=== PATIENT | female | born 1990 | race African-American/Black ===

== ENCOUNTER 2018-07-23 07:59 | Day surgery (SDC) | payer BC, OTHER ==
[2018-07-23] MEDS ORDERED: CEFAZOLIN 1 GM/D5W RTU 1 GM/50 ML RTUPB IV PRN (08:02)
[2018-07-23] MEDS ORDERED: FENTANYL CITRATE INJ/PF 100 MCG/2 ML AMPUL ONE (08:31)
[2018-07-23] MEDS ORDERED: LIDOCAINE 2% INJ-PF (20 MG/ML) 10 ML AMPUL ONE (08:31)
[2018-07-23] MEDS ORDERED: MIDAZOLAM 2 MG/2 ML INJ ONE (08:31)
[2018-07-23] MEDS ORDERED: PROPOFOL INJ 200 MG/20 ML VIAL IV ONE (08:32)
[2018-07-23] MEDS ORDERED: KETOROLAC TROMETHAMINE 60 MG/2 ML SDV ONE (08:32)
[2018-07-23] MEDS: BUPIVACAINE HCL 0.5 % INJ/PF 30 ML SDV ONE ×2 (09:20)
[2018-07-23] MEDS: LIDOCAINE 2% INJ (20 MG/ML) 20 ML MDV ONE ×2 (09:20)
[2018-07-23] MEDS: NORMAL SALINE INJ/PF 0.9% 10 ML SDV ONE ×2 (09:48)
[2018-07-23] MEDS: BACITRACIN INJ 50,000 UNIT VIAL ONE ×2 (09:48)
[2018-07-23] MEDS: POLYMYXIN B SULFATE INJ 500000 UNIT VIAL ONE ×2 (09:48)
--- NOTE | 2018-07-23 10:39 | [facility]ICARE OPERATIVE REPORT E ---
[facility] Operative Report NAME: JHOAN DUARTE AGE: 28Y DATE OF SURGERY: 07/23/2018 ROOM: PREOPERATIVE DIAGNOSIS: OSTEOPHYTE ON THE DISTAL PHALANX OF THE SECOND TOE OF THE RIGHT FOOT. POSTOPERATIVE DIAGNOSIS: OSTEOPHYTE ON THE DISTAL PHALANX OF THE SECOND TOE OF THE RIGHT FOOT. OPERATION: Excision of osteophyte on the distal aspect of the patient's second distal phalanx. SURGEON: HUSSEIN PETER DPM PROCEDURE: On 07/23/2018, the patient was admitted to [facility] with complaint of painful right foot. Patient was taken to the operating room where following induction of intravenous sedation and regional local anesthesia, the patient's right foot and leg were prepped in usual sterile manner. A digital tourniquet was applied. Prior to that, surgical timeout was performed. Digital tourniquet was applied. Attention was directed to the distal aspect of the patient's second toe on the right foot where a 2 cm linear horizontal incision was made at the distal aspect of the second toe and was taken through the subcutaneous tissue and superficial fascia. All bleeding vessels were clamped, ligated, and Bovied as necessary for hemostasis. The incision was further deepened via sharp and blunt dissection until a growth on the distal aspect of the distal phalanx was identified. It was freed from its surrounding soft tissue attachments and utilizing a Myesha bone cutter, it was freed from its osseous attachments and removed from the wound en toto. All sharp osseous edges were rasped smooth. The area was flushed with copious amounts of sterile antibiotic solution, inspecting the soft tissue after debridement with none being noted. Fluoroscopic studies were obtained, pre and post surgery to identify the lesions and that the lesion had been removed en toto. Incision was then coapted and maintained with simple interrupted horizontal mattress suture of 5-0 nylon and sterile dressings consisting of Abdullahi's silk, 4 x 4's, Basil, Kerlix, and Coban was applied to the patient's right foot. The digital tourniquet was removed prior to the bandage. Capillary filling time was noted to be instantaneous. The patient tolerate the procedure and anesthesia well and was then taken to the recovery room for further monitoring by Anesthesia Department. DICTATING PHYSICIAN: HUSSEIN PETER DPM [id number] PHY#: [id number] ID: [id number] JOB#: [id number] ACCT: [id number] cc:HUSSEIN PETER DPM > PREET
--- NOTE | 2018-07-23 13:45 | RADIOLOGY REPORT (SQ) ---
EXAM DESCRIPTION: TOE RIGHT COMPLETED DATE/TIME: 07/23/2018 10:36 am REASON FOR STUDY: OSTEOTOMY OF 2ND TOE M25.70 OSTEOPHYTE, UNSPECIFIED JOINT COMPARISON: None. FLUOROSCOPY TIME: 9 seconds 2 images saved to PACS. TECHNIQUE: Intra-operative images acquired during surgical procedure to evaluate progress. NUMBER OF IMAGES: 2 images saved to PACs. LIMITATIONS: None. FINDINGS: Limited fluoroscopic images obtained to evaluate surgical progress. Please see operative report for detailed description. IMPRESSION: IMAGE(S) OBTAINED DURING PROCEDURE. COMMENT: Quality ID 145: Final reports for procedures using fluoroscopy that document radiation exp osure indices, or exposure time and number of fluorographic images (if radiation exposure indices are not available) Please consult full operative report of the attending physician for description of the procedure. TECHNICAL DOCUMENTATION: JOB ID: [id number] [employer]- All Rights Reserved Reading location - IP/workstation name: [email or web address]
--- NOTE | 2018-07-23 13:46 | RADIOLOGY REPORT (SQ) ---
EXAM DESCRIPTION: NO CHG FLUORO COMPLETED DATE/TIME: 07/23/2018 10:36 am REASON FOR STUDY: OSTEOTOMY OF 2ND TOE M25.70 OSTEOPHYTE, UNSPECIFIED JOINT COMPARISON: None. FLUOROSCOPY TIME: 9 seconds 2 images Images saved to PACS TECHNIQUE: Intra-operative images acquired during surgical procedure to evaluate progress. NUMBER OF IMAGES: 2 images LIMITATIONS: None. FINDINGS: Fluoroscopic images obtained to evaluate progress. Please see operative report for detail ed description. IMPRESSION: IMAGE(S) OBTAINED DURING PROCEDURE. COMMENT: Quality ID 145: Final reports for procedures using fluoroscopy that document radiation exp osure indices, or exposure time and number of fluorographic images (if radiation exposure indices are not available) Please consult full operative report of the attending physician for description of the procedure. TECHNICAL DOCUMENTATION: JOB ID: [id number] [employer]- All Rights Reserved Reading location - IP/workstation name: [email or web address]
== END 2018-07-23 10:52 | disposition home or self-care (01) ==
LOC: SC 07:59
PROVIDERS: ATTEND Preventive Medicine Undersea and Hyperbaric Medicine
DX: M25.774 Osteophyte, right foot (principal); E66.9 Obesity, unspecified; Z88.0 Allergy status to penicillin; Z68.35 Body mass index [BMI] 35.0-35.9, adult
CPT/HCPCS: 88305 ×2; 88311; 73660; 28108; J2250; J3490 ×6; J1885; J3010; J2704; 01480; J0690